=== PATIENT | female | born 1980 | race African-American/Black ===

== ENCOUNTER 2016-04-15 09:35 | Inpatient (IN) | payer MEDICAID ==
[~2016-04-15] VITALS: Ht 172.7 cm; Wt 65.0 kg
[~2016-04-15 09:35] MED LIST: AMOX500T PO; IBUP800T23 PO; MAGICADU2 SWISH-SPIT
[2016-04-15 09:37] VITALS: BP 120/70; PULSE 107; RESP 19; TEMP 99; O2SAT 100
[2016-04-15 10:45] LABS: BACTERIA, URINE RARE /hpf; BLOOD, URINE SMALL (NEG); COMMENT (UR) CULT NOT INDICATED; CULTURE IF INDICATED CULT NOT INDICATED; GLUCOSE,URINE TRACE mg/dL (NEG); KETONE, URINE 10 mg/dL (NEG); MUCUS URINE FEW /lpf (OCC); NITRITE,URINE NEG (NEG); SQUAMOUS EPITHELIAL CELL URINE 1 /hpf (0-5); URINE COLOR YELLOW (YELLW/STRAW)
[2016-04-15] MEDS ORDERED: SODIUM CHLOR 0.9% 1000 ML INJ 1,000 ML IV SCH (11:08)
[2016-04-15] MEDS ORDERED: SODIUM CHLORIDE 0.9% FLUSH 5 ML FLUSH IVF PRN (11:15)
--- NOTE | 2016-04-15 11:15 | PD ---
HPI Chief Complaint: Abdominal Pain Time Seen by Provider: 11:10 Travel History International Travel<30 days: No Contact w/Intl Traveler<30days: No Traveled to known affect area: No History of Present Illness HPI 36-year-old female presents to the emergency department for evaluation of lower abdominal pain for 3 days. Patient states that the pain has been worsening over the past 3 days. States that it is radiating to her back. States that the pain is aggravated with movement. Denies any alleviating factors. States that she had 2 episodes of nonbloody nonbilious emesis last night. States that she did have a bowel movement this morning but states that it was hard and she was slightly constipated. States that she did notice some white vaginal discharge this morning that is abnormal for her. She is sexually active. Denies any fever, chills, diarrhea, chest pain, shortness of breath, cough or cold symptoms, burning with urination, painful urination. Denies , last menstrual period was 2 weeks ago. Denies any prior abdominal surgeries. No other complaints. PFSH Past Medical History Anemia: Yes Diminished Hearing: No Migraines: Yes ?: Unknown : 2 Para: 2 Social History Alcohol Use: Yes (on occasion) Tobacco Use: Yes (one cigars daily) Substance Use: No Allergies-Medications (Allergen,Severity, Reaction): Coded Allergies: No Known Allergies (Unverified , 04/15/16) Reported Meds & Prescriptions Reported Meds & Active Scripts Active Ibuprofen 800 Mg Tab 800 Mg PO Q6HR PRN Magic Mouthwash Adult Liq (Multi-Ingredient Mouthwash/Gargle) 120 Ml Susp 5 Ml SWISH-SPIT Q3HR PRN Each 5 mL contains: Nystatin 200,000 units, Diphenhydramine 4.25 mg, Viscous Lidocaine 10 mg, Asher syrup 0.8 mL Amoxicillin 500 Mg Tab 500 Mg PO BID 10 Days Review of Systems Except as stated in HPI: all other systems reviewed are Neg Physical Exam Narrative GENERAL: Well-nourished and well-developed pleasant female patient in no acute distress. SKIN: Warm and dry. HEAD: Normocephalic and atraumatic. EYES: No injection, drainage, or hyphema noted. PERRLA. EOMI. ENT: No nasal drainage noted. Oropharynx is clear. NECK: Supple and the trachea is midline. CARDIOVASCULAR: Regular rate and rhythm. RESPIRATORY: Breath sounds are equal bilaterally with no accessory muscle use, wheezing, rhonchi, or crackles. GASTROINTESTINAL: Generalized tenderness to palpation worse in the lower abdomen with guarding. She does have tenderness of right lower quadrant but has equal tenderness of left lower quadrant. Abdomen is soft and nondistended. MUSCULOSKELETAL: No obvious deformities, swelling, cyanosis, or ecchymosis is present throughout the upper and lower extremities. Patient has full range of motion without any signs of neurovascular compromise. BACK: Positive CVA tenderness on the right. NEUROLOGICAL: Awake, alert, and oriented. Normal speech and gait. Cranial nerves are grossly intact. Data Data Last Documented VS Vital Signs Date Time Temp Pulse Resp B/P Pulse Ox O2 Delivery O2 Flow Rate FiO2 04/15/16 09:37 99.0 107 19 120/70 100 Room Air Orders Urinalysis - C+S If Indicated (04/15/16 09:54) Ed Urine Pregnancytest Poc (04/15/16 09:54) Complete Blood Count With Diff (04/15/16 11:08) Comprehensive Metabolic Panel (04/15/16 11:08) Lipase (04/15/16 11:08) Ct Abd/Pel W Iv Contrast(Rout) (04/15/16 11:08) Iv Access Insert/Monitor (04/15/16 11:08) Ecg Monitoring (04/15/16 11:08) Oximetry (04/15/16 11:08) NPO (04/15/16 11:08) Sodium Chlor 0.9% 1000 Ml Inj (Ns 1000 M (04/15/16 11:08) Sodium Chloride 0.9% Flush (Ns Flush) (04/15/16 11:15) Labs Laboratory Tests Test 04/15/16 10:01 Urine Color YELLOW Urine Turbidity CLEAR Urine pH 6.0 Urine Specific [place] 1.021 Urine Protein 30 mg/dL Urine Glucose (UA) TRACE mg/dL Urine Ketones 10 mg/dL Urine Occult Blood SMALL Urine Nitrite NEG Urine Bilirubin NEG Urine Urobilinogen 2.0 MG/DL Urine Leukocyte Esterase NEG Urine RBC 5 /hpf Urine WBC 1 /hpf Urine Squamous Epithelial 1 /hpf Cells Urine Bacteria RARE /hpf Urine Mucus FEW /lpf Microscopic Urinalysis Comment CULT NOT INDICATED MDM Medical Decision Making Medical Screen Exam Complete: Yes Emergency Medical Condition: Yes Differential Diagnosis Appendicitis versus pyelonephritis versus diverticulitis versus colitis versus PID Narrative Course 36-year-old female presents to the emergency department for evaluation of abdominal pain for 3 days as 2 episodes of vomiting last night. Patient is afebrile. She is slightly tachycardic with a heart rate of 107 beats per minute. Vital signs are stable. She does have abdominal tenderness to palpation with guarding. IV access is obtained, labs are drawn and sent. CT of the abdomen and pelvis with IV contrast has been ordered and is pending. Patient has initially been seen in triage and will be transferred to medical bed when one becomes available. Emmie Orellana Apr 15, 2016 11:15
--- NOTE | 2016-04-15 11:55 | PD ---
Physical Exam Date Seen by Provider: Apr 15, 2016 Time Seen by Provider: 11:53 Narrative This patient was initially evaluated by Emmie Orellana PA-C. CBC, CMP, lipase, CT of abdomen and pelvis pending when I assumed care of the patient. Bedside urine test negative. 36 year old female presents to the ED for evaluation of day history of gradual onset, now constant 10/10 lower abdominal pain, worsened by certain movements and bearing down. Patient endorses two episodes of nonbloody, nonbilious vomiting last night. Denies nausea on presentation. Last bowel movement this morning, well formed, nonbloody. She denies dysuria, hematuria. She endorses white vaginal discharge, first noticed today. She endorses unprotected sex with male partners. LMP approximately 2 weeks ago. She denies previous abdominal surgery, chronic health problems, takes no daily medications, NKDA. GENERAL: Well-nourished, well-developed nontoxic-appearing black female in no acute distress. SKIN: Warm and dry. Multiple tattoos. HEAD: Normocephalic. EYES: No scleral icterus. No injection or drainage. NECK: Supple, trachea midline. No JVD or lymphadenopathy. CARDIOVASCULAR: Regular rate and rhythm without murmurs, gallops, or rubs. RESPIRATORY: Breath sounds clear and equal bilaterally. No accessory muscle use. GASTROINTESTINAL: Hyperactive bowel sounds. Abdomen soft, mildly distended, diffusely tender, some voluntary guarding. No palpable masses. GENITOURINARY: Normal external genitalia without lesions or erythema. Vaginal vault without blood. Thick white drainage at the introitus. Cervical os was closed with copious, thin grayish green discharge. ++cervical motion tenderness. Uterus tender and nonenlarged. Bilateral adnexa tender without masses. MUSCULOSKELETAL: No cyanosis, or edema. BACK: Nontender without obvious deformity. Bilateral CVA tenderness, right >> left. Data Data Last Documented VS Vital Signs Date Time Temp Pulse Resp B/P Pulse Ox O2 Delivery O2 Flow Rate FiO2 04/15/16 12:00 99 Room Air 04/15/16 11:56 20 04/15/16 09:37 99.0 107 120/70 Orders Urinalysis - C+S If Indicated (04/15/16 09:54) Ed Urine Pregnancytest Poc (04/15/16 09:54) Complete Blood Count With Diff (04/15/16 11:08) Comprehensive Metabolic Panel (04/15/16 11:08) Lipase (04/15/16 11:08) Ct Abd/Pel W Iv Contrast(Rout) (04/15/16 11:08) Iv Access Insert/Monitor (04/15/16 11:08) Ecg Monitoring (04/15/16 11:08) Oximetry (04/15/16 11:08) NPO (04/15/16 11:08) Sodium Chlor 0.9% 1000 Ml Inj (Ns 1000 M (04/15/16 11:08) Sodium Chloride 0.9% Flush (Ns Flush) (04/15/16 11:15) Gc And Chlamydia Pcr (04/15/16 12:12) Wet Prep Profile (04/15/16 12:12) Morphine Inj (Morphine Inj) (04/15/16 12:30) Ondansetron Inj (Zofran Inj) (04/15/16 12:30) Iohexol 350 Inj (Omnipaque 350 Inj) (04/15/16 12:22) Clindamycin Inj (Cleocin Inj) (04/15/16 13:00) Gentamicin Inj (Gentamicin Inj) (04/15/16 13:00) Consult General Surgery (04/15/16 ) Admit Order (Ed Use Only) (04/15/16 13:36) Sodium Chlor 0.9% 1000 Ml Inj (Ns 1000 M (04/15/16 13:45) Labs Laboratory Tests Test 04/15/16 04/15/16 04/15/16 10:01 11:47 12:50 Urine Color YELLOW Urine Turbidity CLEAR Urine pH 6.0 Urine Specific [place] 1.021 Urine Protein 30 mg/dL Urine Glucose (UA) TRACE mg/dL Urine Ketones 10 mg/dL Urine Occult Blood SMALL Urine Nitrite NEG Urine Bilirubin NEG Urine Urobilinogen 2.0 MG/DL Urine Leukocyte Esterase NEG Urine RBC 5 /hpf Urine WBC 1 /hpf Urine Squamous Epithelial 1 /hpf Cells Urine Bacteria RARE /hpf Urine Mucus FEW /lpf Microscopic Urinalysis Comment CULT NOT INDICATED White Blood Count 11.9 TH/MM3 Red Blood Count 4.51 MIL/MM3 Hemoglobin 12.9 GM/DL Hematocrit 38.7 % Mean Corpuscular Volume 85.8 FL Mean Corpuscular Hemoglobin 28.7 PG Mean Corpuscular Hemoglobin 33.4 % Concent Red Cell Distribution Width 13.3 % Platelet Count 212 TH/MM3 Mean Platelet Volume 7.9 FL Neutrophils (%) (Auto) 72.7 % Lymphocytes (%) (Auto) 8.1 % Monocytes (%) (Auto) 18.9 % Eosinophils (%) (Auto) 0.1 % Basophils (%) (Auto) 0.2 % Neutrophils # (Auto) 8.7 TH/MM3 Lymphocytes # (Auto) 1.0 TH/MM3 Monocytes # (Auto) 2.3 TH/MM3 Eosinophils # (Auto) 0.0 TH/MM3 Basophils # (Auto) 0.0 TH/MM3 CBC Comment AUTO DIFF Differential Comment AUTO DIFF CONFIRMED Toxic Vacuolation PRESENT Platelet Estimate NORMAL Platelet Morphology Comment NORMAL Sodium Level 136 MEQ/L Potassium Level 3.8 MEQ/L Chloride Level 101 MEQ/L Carbon Dioxide Level 28.7 MEQ/L Anion Gap 6 MEQ/L Blood Urea Nitrogen 8 MG/DL Creatinine 0.65 MG/DL Estimat Glomerular Filtration 125 ML/MIN Rate Random Glucose 97 MG/DL Calcium Level 9.1 MG/DL Total Bilirubin 0.7 MG/DL Aspartate Amino Transf 14 U/L (AST/SGOT) Alanine Aminotransferase 14 U/L (ALT/SGPT) Alkaline Phosphatase 55 U/L Total Protein 8.5 GM/DL Albumin 3.7 GM/DL Lipase 48 U/L Clue Cells (Wet Prep) PRESENT Vaginal Trichomonas (Wet Prep) NONE SEEN Vaginal Yeast (Wet Prep) NONE SEEN MDM Supervised Visit with WADE: No Differential Diagnosis Appendicitis versus pyelonephritis versus PID versus STI versus cholecystitis versus other Narrative Course Patient was initially evaluated in the [facility]. Please see previous provider note for those details. 36-year-old female presents to the ED for evaluation of 3 day history of gradual onset, now constant, 10/10 lower abdominal pain, worsened by certain movements and bearing down. Reports 2 episodes of nonbloody nonbilious vomiting last night. No nausea on presentation. Patient reports well formed, nonbloody bowel movement this morning. Denies dysuria, hematuria. Endorses white vaginal discharge today, unprotected sex with male partners. LMP 2 weeks ago. No previous abdominal surgery. Vitals reviewed. Tachycardic, rate 107 on presentation. Temp 99.0. Physical exam reveals a nontoxic-appearing black female in no acute distress. There are hyperactive bowel sounds, the abdomen is mildly distended, diffusely tender. Positive CVA tenderness bilaterally, right >> left. Pelvic shows thick white discharge at the introitus, copious thin, grayish green discharge from the cervical os. Positive cervical motion tenderness. IV was established. Patient was placed on continuous monitoring. She was administered a liter of normal saline, 4mg morphine, 4mg Zofran IV CBC: WBC 11.9. Hemoglobin 12.9. CMP: Unremarkable Lipase: 48 UA: No culture indicated UPT: Negative Wet prep: Positive for clue cells. GC and chlamydia: Pending CT of the abdomen and pelvis: Fluid-filled, mildly dilated loops of small bowel suggestive partial small bowel obstruction or small bowel ileus. No certain terms vision point identified. Bilateral renal cysts per radiology read. I discussed the results of the workup and plan of care with Dr. Schulz and the patient who are both agreeable. Patient was administered 900 mg clindamycin IV , loading dose of gentamicin 130 milligrams IV for PID and BV. I'll defer empiric treatment for GC/chlamydia at this time as I plan to admit the patient for observation due to partial SBO. Consult placed with Dr. Jacobson, general surgery. I spoke Dr. Ibrahim, medical microbiologist. He agrees to accept the patient to their service under Dr. Campuzano. Please see medicine and surgery notes for disposition. Diagnosis Primary Impression: Partial small bowel obstruction Additional Impressions: Pelvic inflammatory disease (PID) Bacterial vaginosis Stephenie Maya Apr 15, 2016 11:55
[2016-04-15 12:00] VITALS: BP 127/65; PULSE 90; RESP 18; TEMP 98.4; O2SAT 98; O2SAT 99
[2016-04-15 12:08] LABS: AUTOMATED NEUTROPHIL # 8.7 TH/MM3 (1.8-7.7); BASOPHIL % 0.2 % (0.0-2.0); EOSINOPHIL % 0.1 % (0.0-4.0); HEMATOCRIT 38.7 % (35.0-46.0); HEMO FLAGS AUTO DIFF; LYMPH % 8.1 % (9.0-44.0); MEAN CELL VOLUME 85.8 FL (80.0-100.0); MEAN CORPUSCULAR HEMOGLOBIN 28.7 PG (27.0-34.0); MEAN CORPUSCULAR HGB CONC 33.4 % (32.0-36.0); MONO % 18.9 % (0.0-8.0); NEUT % 72.7 % (16.0-70.0); PLATELET COUNT 212 TH/MM3 (150-450); RED BLOOD COUNT 4.51 MIL/MM3 (4.00-5.30); RED CELL DISTRIBUTION WIDTH 13.3 % (11.6-17.2); WHITE BLOOD COUNT 11.9 TH/MM3 (4.0-11.0)
[2016-04-15] MEDS ORDERED: IOHEXOL 350 MG/ML 10 ML VIAL (for RAD DIAG) IV ONE (12:22)
[2016-04-15 12:24] LABS: ALKALINE PHOSPHATASE 55 U/L (45-117); TOTAL BILIRUBIN ADULT 0.7 MG/DL (0.2-1.0)
[2016-04-15 12:25] LABS: ALT (GPT) 14 U/L (10-53); ANION GAP 6 MEQ/L (5-15); AST (GOT) 14 U/L (15-37); BICARBONATE 28.7 MEQ/L (21.0-32.0); BLOOD UREA NITROGEN 8 MG/DL (7-18); CHLORIDE 101 MEQ/L (98-107); GLOMERULAR FILTRATION RATE 125 ML/MIN (>89); SODIUM (NA) 136 MEQ/L (136-145)
[2016-04-15 12:28] LABS: POTASSIUM 3.8 MEQ/L (3.5-5.1)
[2016-04-15] MEDS ORDERED: ONDANSETRON HCL 4 MG/2 ML VIAL IV PUSH ONE (12:30)
[2016-04-15] MEDS ORDERED: MORPHINE SULFATE 4 MG/ML INJ IV PUSH ONE (12:30)
--- NOTE | 2016-04-15 12:38 | RADRPT ---
EXAM DATE/TIME: 04/15/2016 12:14 [facility] COMPARISON: CT ABDOMEN & PELVIS W/O CONTRAST, June 11, 2015, 16:44. INDICATIONS : Abdominal pain for three days. IV CONTRAST: 90 cc Omnipaque 350 (iohexol) IV ORAL CONTRAST: No oral contrast ingested. RADIATION DOSE: 5.57 CTDIvol (mGy) MEDICAL HISTORY : None SURGICAL HISTORY : None. ENCOUNTER: Initial ACUITY: 3 days PAIN SCALE: 5/10 LOCATION: Bilateral abdomen TECHNIQUE: Volumetric scanning of the abdomen and pelvis was performed. Using automated exposure control and ad justment of the mA and/or kV according to patient size, radiation dose was kept as low as reasonably achievable to obtain optimal diagnostic quality images. FINDINGS: LOWER LUNGS: The visualized lower lungs are clear. LIVER: Homogeneous density without lesion. There is no dilation of the biliary tree. No calcified gallston es. SPLEEN: Normal size without lesion. PANCREAS: Within normal limits. KIDNEYS: Normal in size and shape. There is no solid mass, stone or hydronephrosis. Stable bilateral renal cy sts are noted. ADRENAL GLANDS: Within normal limits. VASCULAR: There is no aortic aneurysm. BOWEL/MESENTERY: Fluid-filled mildly dilated loops of small bowel are noted suggesting partial small bowel obstruction or small bowel ileus. Clinical correlation is recommended. A transition point is not confirmed with certainty. ABDOMINAL WALL: Within normal limits. RETROPERITONEUM: There is no lymphadenopathy. BLADDER: No wall thickening or mass. REPRODUCTIVE: Within normal limits. Small amount of free fluid is noted within the cul-de-sac. INGUINAL: There is no lymphadenopathy or hernia. MUSCULOSKELETAL: Within normal limits for patient age. CONCLUSION: 1. Fluid-filled mildly dilated loops of small bowel are noted suggesting partial small bowel obstruct ion or small bowel ileus. Clinical correlation is recommended. A transition point is not confirmed wi th certainty. 2. Bilateral renal cysts. Wood Samson MD on April 15, 2016 at 12:31 Board Certified Radiologist. This report was verified electronically.
[2016-04-15] MEDS ORDERED: CLINDAMYCIN INJ 900 MG in SODIUM CHLORIDE 0.9% INJ 100 ML IV ONE (13:00)
[2016-04-15] MEDS ORDERED: GENTAMICIN INJ 130 MG in SODIUM CHLORIDE 0.9% INJ 100 ML IV ONE (13:00)
[2016-04-15 13:16] LABS: SCAN/DIFF AUTO DIFF CONFIRMED
[2016-04-15 13:17] LABS: PLATELET ESTIMATE SMEAR NORMAL (NORMAL); PLATELET MORPHOLOGY NORMAL (NORMAL); TOXIC VACUOLATION PRESENT (NONE SEEN)
[2016-04-15] MEDS ORDERED: SODIUM CHLOR 0.9% 1000 ML INJ 1,000 ML IV ONE (13:45)
--- NOTE | 2016-04-15 13:48 | HHI.HP ---
[facility] Service Family Medicine Primary Care Physician No Primary Care Physician Admission Diagnosis partial small bowel obstruction, PID Diagnoses: Chief Complaint: abdominal pain International Travel<30 Days: No Contact w/Intl Traveler<30days: No Known Affected Area: No History of Present Illness 36 y/o -[place] female with no past medical history. She's been having abdominal pain for the last 3-4 days. Has progressively getting worse. Feels like sharp, stabbing pain. Is tender when she presses on her abdomen. Pain is bilateral lower pain. Constant pain, stabbing intermittently. Had trouble sleeping last night. 10/10 pain. Hasn't tried anything at home. Had fever last night. Pain with coughing or walking. No URI symptoms. Last bowel movement this morning, was normal. Last BM was 2 days ago, hard, difficult to pass. No blood in stool. Vomited twice last night. No history of this before. Denies any past medical history. Last intercourse was on Thursday. Has had some clear, milky discharge the last few days. No bleeding. Last period was 2 weeks ago. Has regular periods every month. (Joon Wong MD R1) Review of Systems Constitutional: COMPLAINS OF: Fever, Night Sweats, DENIES: Chills, Dizziness Eyes: DENIES: Eye pain, Vision loss Ears, nose, mouth, throat: DENIES: Tinnitus, Throat pain, Running Nose Respiratory: DENIES: Cough, Wheezing, Sputum production, Shortness of breath Cardiovascular: DENIES: Chest pain, Palpitations, Syncope, Lower Extremity Edema Gastrointestinal: COMPLAINS OF: Abdominal pain, Constipation, Nausea, Vomiting , DENIES: Black stools, Bloody stools, Diarrhea Genitourinary: COMPLAINS OF: Abnormal vaginal bleeding, Dyspareunia, Vaginal discharge, DENIES: Urinary frequency, Hematuria, Dysuria Musculoskeletal: DENIES: Joint pain, Muscle aches Integumentary: DENIES: Abnormal pigmentation, Rash Hematologic/lymphatic: DENIES: Bruising, Lymphadenopathy Immunologic/allergic: DENIES: Eczema, Urticaria Neurologic: DENIES: Abnormal gait, Headache Psychiatric: DENIES: Anxiety, Confusion (Joon Wong MD R1) Past Family Social History Past Medical History None , SVDx2 Past Surgical History None Reported Medications Reported Meds & Active Scripts Active (Joon Wong MD R1) Allergies: Coded Allergies: No Known Allergies (Unverified , 04/15/16) Active Ordered Medications Active Medications Clindamycin Phosphate 900 mg/ Sodium Chloride 106 ml @ 212 mls/hr ONCE ONCE IV ; Start 04/15/16 at 13:00; Stop 04/15/16 at 13:29; Status DC Gentamicin Sulfate 130 mg/ Sodium Chloride 103.25 ml @ 100 mls/ hr ONCE ONCE IV; Start 04/15/16 at 13:00; Stop 04/15/16 at 14:01 Iohexol 90 ml 90 ml STK-MED ONCE IV Last administered on 04/15/16 12:22; Admin Dose 90 ML; Start 04/15/16 at 12:22; Stop 04/15/16 at 12:23; Status DC IV Flush (NS Flush) 2 ml UNSCH PRN IVF; Start 04/15/16 at 11:15 Morphine Sulfate (Morphine Inj) 4 mg ONCE ONCE IV PUSH Last administered on 04/15 12:36; Admin Dose 4 MG; Start 04/15/16 at 12:30; Stop 04/15/16 at 12:31; Status DC Ondansetron HCl (Zofran Inj) 4 mg ONCE ONCE IV PUSH Last administered on 12:36; Admin Dose 4 MG; Start 04/15/16 at 12:30; Stop 04/15/16 at 12:31; Status DC Sodium Chloride (NS 1000 ml Inj) 1,000 ml @ 999 mls/hr BOLUS ONCE IV; Start at 13:45; Stop 04/15/16 at 14:45 Sodium Chloride (NS 1000 ml Inj) 1,000 ml @ 1,000 mls/hr Q1H IV Last administered on 04/15/16 12:11; Admin Dose 1,000 MLS/HR; Start 04/15/16 at 11:08 ; Stop 04/15/16 at 12:07; Status DC Family History Grandmother & mom with breast cancer Social History Self-employed Smokes 6 cigs/day, for 5 years Drinks 3-4 glasses of liquor every other day Denies illicit drug use (Joon Wong MD R1) Physical Exam Vital Signs Vital Signs Date Time Temp Pulse Resp B/P Pulse Ox O2 Delivery O2 Flow Rate FiO2 04/15/16 12:00 99 Room Air 2/7/17 11:56 20 04/15/16 09:37 99.0 107 19 120/70 100 Room Air Physical Exam GENERAL: This is a well-nourished, well-developed patient, in no apparent distress, laying in bed SKIN: No rashes, ecchymoses or lesions. Cool and dry. HEAD: Atraumatic. Normocephalic. No temporal or scalp tenderness. EYES: Pupils equal round and reactive. Extraocular motions intact. No scleral icterus. No injection or drainage. ENT: Nose without bleeding, purulent drainage or septal hematoma. Throat without erythema, tonsillar hypertrophy or exudate. Uvula midline. Airway patent. NECK: Trachea midline. No JVD or lymphadenopathy. Supple, nontender, no meningeal signs. CARDIOVASCULAR: Regular rate and rhythm without murmurs, gallops, or rubs. RESPIRATORY: Clear to auscultation. Breath sounds equal bilaterally. No wheezes , rales, or rhonchi. GASTROINTESTINAL: Abdomen soft. Diffusely tender to palpation in lower abdominal area. No hepato-splenomegaly, or palpable masses. No guarding. Bowel sounds present. MUSCULOSKELETAL: Extremities without clubbing, cyanosis, or edema. No joint tenderness, effusion, or edema noted. No calf tenderness. Bilateral CVAT NEUROLOGICAL: Awake and alert. Cranial nerves II through XII intact. Motor and sensory grossly within normal limits. Five out of 5 muscle strength in all muscle groups. Normal speech. Laboratory Laboratory Tests Test 04/15/16 04/15/16 04/15/16 10:01 11:47 12:50 Urine Color YELLOW Urine Turbidity CLEAR Urine pH 6.0 Urine Specific [place] 1.021 Urine Protein 30 Urine Glucose (UA) TRACE Urine Ketones 10 Urine Occult Blood SMALL Urine Nitrite NEG Urine Bilirubin NEG Urine Urobilinogen 2.0 Urine Leukocyte Esterase NEG Urine RBC 5 Urine WBC 1 Urine Squamous Epithelial 1 Cells Urine Bacteria RARE Urine Mucus FEW Microscopic Urinalysis Comment CULT NOT INDICATED White Blood Count 11.9 Red Blood Count 4.51 Hemoglobin 12.9 Hematocrit 38.7 Mean Corpuscular Volume 85.8 Mean Corpuscular Hemoglobin 28.7 Mean Corpuscular Hemoglobin 33.4 Concent Red Cell Distribution Width 13.3 Platelet Count 212 Mean Platelet Volume 7.9 Neutrophils (%) (Auto) 72.7 Lymphocytes (%) (Auto) 8.1 Monocytes (%) (Auto) 18.9 Eosinophils (%) (Auto) 0.1 Basophils (%) (Auto) 0.2 Neutrophils # (Auto) 8.7 Lymphocytes # (Auto) 1.0 Monocytes # (Auto) 2.3 Eosinophils # (Auto) 0.0 Basophils # (Auto) 0.0 CBC Comment AUTO DIFF Differential Comment AUTO DIFF CONFIRMED Toxic Vacuolation PRESENT Platelet Estimate NORMAL Platelet Morphology Comment NORMAL Sodium Level 136 Potassium Level 3.8 Chloride Level 101 Carbon Dioxide Level 28.7 Anion Gap 6 Blood Urea Nitrogen 8 Creatinine 0.65 Estimat Glomerular Filtration 125 Rate Random Glucose 97 Calcium Level 9.1 Total Bilirubin 0.7 Aspartate Amino Transf 14 (AST/SGOT) Alanine Aminotransferase 14 (ALT/SGPT) Alkaline Phosphatase 55 Total Protein 8.5 Albumin 3.7 Lipase 48 Clue Cells (Wet Prep) PRESENT Vaginal Trichomonas (Wet Prep) NONE SEEN Vaginal Yeast (Wet Prep) NONE SEEN (Joon Wong MD R1) Result Diagram: 04/15/16 1147 04/15/16 1147 Imaging Last Impressions Abdomen/Pelvis CT 04/15/16 1108 Signed Impressions: Service Date/Time: Friday, April 15, 2016 12:14 - CONCLUSION: 1. Fluid-filled mildly dilated loops of small bowel are noted suggesting partial small bowel obstruction or small bowel ileus. Clinical correlation is recommended. A transition point is not confirmed with certainty. 2. Bilateral renal cysts. Wood Samson MD (Joon Wong MD R1) Assessment and Plan Assessment and Plan 36-year-old female presents with abdominal pain. Found to have PID. Will admit for IV antibiotics and pain control. Code Status Full Discussed Condition With Dr. Ibrahim (Joon Wong MD R1) Attending Attestation THIS CASE WAS DISCUSSED WITH THE RESIDENT PHYSICIANS. I HAVE REVIEWED THE RECORD AND AGREE WITH THE ABOVE NOTE AND PLAN OF CARE WAS DISCUSSED. I HAVE AUTHORIZED THE ORDER FOR ADMISSION TO AN IN-PATIENT STATUS. (Kumar Campuzano MD) Problem List: (1) Pelvic inflammatory disease (PID) Status: Acute Plan: Soft, diffusely tender lower abdomen. WBC 11.9. Vital signs stable. Pelvic exam; thick white and green discharge. Positive cervical motion tenderness. Wet prep: Positive for clue cells GC and chlamydia pending Abdomen/CT pelvis; fluid-filled mildly dilated loops of small bowel are noted suggesting partial small bowel obstruction or small bowel ileus. Given clindamycin 900 mg IV and gentamicin loading dose 130mg in ED Plan -Continue Clindamycin 900mg IV q8H -Continue Gentamicin 100mg IV q8H -Pain control with tylenol and ibuprofen -Zofran PRN nausea -Clear liquid diet -GC/CH pending (2) Partial small bowel obstruction Status: Acute Plan: Abdomen/CT pelvis; fluid-filled mildly dilated loops of small bowel are noted suggesting partial small bowel obstruction or small bowel ileus. Patient reports having bowel movement this morning. Does report occasional constipation previous to presentation. Plan -Clear liquid diet, advance diet as tolerated -Zofran PRN nausea -Monitor input/output (3) FEN Status: Acute Plan: Fluids: NS @ 75mls/hr Electrolytes; wnl. continue to monitor Nutrition: CLD, advance as tolerated DVT ppx: SCDs (Joon Wong MD R1) Physician Certification 2 Midnight Certification Type: Admission for Inpatient Services Order for Inpatient Services The services are ordered in accordance with Medicare regulations or non- Medicare payer requirements, as applicable. In the case of services not specified as inpatient-only, they are appropriately provided as inpatient services in accordance with the 2-midnight benchmark. Estimated LOS (days): 2 days is the estimated time the patient will need to remain in the hospital, assuming treatment plan goals are met and no additional complications. Post-Hospital Plan: Home (Joon Wong MD R1) Joon Wong MD R1 Apr 15, 2016 13:48 Kumar Campuzano MD Apr 17, 2016 08:09
[2016-04-15] MEDS ORDERED: SODIUM CHLORIDE 0.9% FLUSH 5 ML FLUSH FLUSH PRN (14:15)
[2016-04-15] MEDS ORDERED: IBUPROFEN 600 MG TAB PO PRN (14:15)
[2016-04-15] MEDS ORDERED: ONDANSETRON HCL 4 MG/2 ML VIAL IV PRN (14:15)
[2016-04-15] MEDS: SODIUM CHLOR 0.9% 1000 ML INJ 1,000 ML IV SCH ×2 (14:50→21:52)
[2016-04-15 15:00] VITALS: BP 129/71; PULSE 88; RESP 18; TEMP 98.7; O2SAT 98
[2016-04-15 15:58] LABS: CHLAMYDIA PCR NOT DETECTED (NOT DETECT); NEISSERIA PCR NOT DETECTED (NOT DETECT)
[2016-04-15 16:00] VITALS: BP 114/67; PULSE 80; RESP 18; TEMP 98.7; O2SAT 98
[2016-04-15] MEDS: ACETAMINOPHEN 325 MG TAB PO PRN (16:23)
[2016-04-15 17:09] VITALS: BP 102/61; PULSE 78; RESP 20; O2SAT 97
[2016-04-15 21:02] VITALS: BP 105/72; PULSE 82; RESP 16; TEMP 98.7; O2SAT 98
[2016-04-15] MEDS: SODIUM CHLORIDE 0.9% FLUSH 5 ML FLUSH FLUSH SCH (21:54)
[2016-04-15] MEDS: GENTAMICIN INJ 100 MG in SODIUM CHLORIDE 0.9% INJ 100 ML IV SCH (22:27)
[2016-04-16] VITALS: BP 98/57; PULSE 98; RESP 16; TEMP 99.8; O2SAT 97
[2016-04-16] MEDS: CLINDAMYCIN INJ 900 MG in SODIUM CHLORIDE 0.9% INJ 100 ML IV SCH ×2 (00:31→07:28)
[2016-04-16] MEDS: ACETAMINOPHEN 325 MG TAB PO PRN (00:36)
[2016-04-16 04:00] VITALS: BP 95/49; PULSE 85; RESP 16; TEMP 98.7; O2SAT 96
[2016-04-16] MEDS: GENTAMICIN INJ 100 MG in SODIUM CHLORIDE 0.9% INJ 100 ML IV SCH (06:03)
[2016-04-16 08:00] VITALS: BP 99/62; PULSE 82; RESP 18; TEMP 99.4; O2SAT 100
[2016-04-16] MEDS: SODIUM CHLORIDE 0.9% FLUSH 5 ML FLUSH FLUSH SCH (08:00)
[2016-04-16 08:37] LABS: AUTOMATED NEUTROPHIL # 5.8 TH/MM3 (1.8-7.7); BASOPHIL % 0.2 % (0.0-2.0); EOSINOPHIL % 0.3 % (0.0-4.0); HEMATOCRIT 31.1 % (35.0-46.0); HEMO FLAGS DIFF FINAL; LYMPH % 10.9 % (9.0-44.0); LYMPHOCYTE # 0.9 TH/MM3 (1.0-4.8); MEAN CORPUSCULAR HEMOGLOBIN 29.4 PG (27.0-34.0); MEAN CORPUSCULAR HGB CONC 34.2 % (32.0-36.0); NEUT % 67.6 % (16.0-70.0); PLATELET COUNT 175 TH/MM3 (150-450); RED BLOOD COUNT 3.62 MIL/MM3 (4.00-5.30); RED CELL DISTRIBUTION WIDTH 13.1 % (11.6-17.2); WHITE BLOOD COUNT 8.6 TH/MM3 (4.0-11.0)
--- NOTE | 2016-04-16 08:53 | HHI.FPPN ---
Subjective Remarks FM Attending Note: Patient seen and examined. S: Chart and all resident physician notes reviewed. In summary this is a 36 year old female who was admitted with an admission diagnosis of Partial Small Bowel Obstruction/Pid. This patient described a 2-3 day history of increasing abdominal pain, nausea, vomiting and fever. Pain increased with walking. CT of abdomen done in the ER suggested a partial small bowel obx/ileus. Pelvic exam done by ER physician showed cervical discharge with moderately severe cervical motion pain. GC PCR was negative. Patient was admitted and started on IV antibiotics. This AM noting that the pain is much better. Now hungry. No further nausea. No fever or chills. Objective Vitals Vital Signs Date Time Temp Pulse Resp B/P Pulse Ox O2 Delivery O2 Flow Rate FiO2 04/16/16 04:00 98.7 85 16 95/49 96 04/16/16 00:00 99.8 98 16 98/57 97 04/15/16 21:02 98.7 82 16 105/72 98 04/15/16 17:09 78 20 102/61 97 Room Air 04/15/16 16:00 98.7 80 18 114/67 98 Room Air 04/15/16 15:00 98.7 88 18 129/71 98 Room Air 04/15/16 12:00 98.4 90 18 127/65 98 Room Air 04/15/16 12:00 99 Room Air 04/15/16 11:56 20 04/15/16 09:37 99.0 107 19 120/70 100 Room Air I/O 04/15/16 04/15/16 04/15/16 04/16/16 04/16/16 04/16/16 07:00 15:00 23:00 07:00 15:00 23:00 Intake Total 225 ml 400 ml 550 ml Balance 225 ml 400 ml 550 ml Intake Oral 150 ml 550 ml IV Total 75 ml 400 ml # Voids 1 2 # Bowel Movements 0 0 Result Diagram: 04/15/16 1147 04/15/16 1147 Other Results Item Value Date Time Total Bilirubin 0.7 MG/DL 04/15/16 1147 Aspartate Amino Transf (AST/SGOT) 14 U/L L 04/15/16 1147 Alanine Aminotransferase (ALT/SGPT) 14 U/L 04/15/16 1147 Alkaline Phosphatase 55 U/L 04/15/16 1147 Lipase 48 U/L L 04/15/16 1147 Urine Specific [place] 1.021 04/15/16 1001 Urine Glucose (UA) TRACE mg/dL 04/15/16 1001 Urine Protein 30 mg/dL H 04/15/16 1001 Urine Occult Blood SMALL H 04/15/16 1001 Urine Nitrite NEG 04/15/16 1001 Urine Leukocyte Esterase NEG 04/15/16 1001 Urine RBC 5 /hpf H 04/15/16 1001 Urine WBC 1 /hpf 04/15/16 1001 Clue Cells (Wet Prep) PRESENT H 04/15/16 1250 Vaginal Trichomonas (Wet Prep) NONE SEEN 04/15/16 1250 Vaginal Yeast (Wet Prep) NONE SEEN 04/15/16 1250 Chlamydia trachomatis DNA (PCR) NOT DETECTED 04/15/16 1250 Neisseria gonorrhoeae DNA (PCR) NOT DETECTED 04/15/16 1250 Imaging Last 48 hours Impressions Abdomen/Pelvis CT 04/15/16 1108 Signed Impressions: Service Date/Time: Friday, April 15, 2016 12:14 - CONCLUSION: 1. Fluid-filled mildly dilated loops of small bowel are noted suggesting partial small bowel obstruction or small bowel ileus. Clinical correlation is recommended. A transition point is not confirmed with certainty. 2. Bilateral renal cysts. Wood Samson MD Objective Remarks O. CONSTITUTIONAL/GEN: normally nourished, in NAD. EYES: conjunctiva normal LUNGS: clear A-P, respiratory effort is normal. CARDIOVASCULAR: RR without murmur or gallop. No significant edema. GI/ABD: soft without masses, without organomegaly. Mild direct tenderness in right and left lower quadrant area. No rebound tenderness. : no CVA tenderness NEURO: No focal deficits. MUSC: back is normal in appearance. Extremities are normal in appearance. PSYCH/MENTAL STATUS: Alert and oriented x 3. A/P Assessment and Plan 36-year-old female presents with abdominal pain. Found to have PID. Will admit for IV antibiotics and pain control. Problem List: (1) Pelvic inflammatory disease (PID) Status: Acute Plan: Soft, diffusely tender lower abdomen. WBC 11.9. Vital signs stable. Pelvic exam; thick white and green discharge. Positive cervical motion tenderness. Wet prep: Positive for clue cells GC and chlamydia pending Abdomen/CT pelvis; fluid-filled mildly dilated loops of small bowel are noted suggesting partial small bowel obstruction or small bowel ileus. Given clindamycin 900 mg IV and gentamicin loading dose 130mg in ED Plan -Continue Clindamycin 900mg IV q8H -Continue Gentamicin 100mg IV q8H -Pain control with tylenol and ibuprofen -Zofran PRN nausea -Clear liquid diet -GC/CH pending 04/16/16 GC and chlamydia PCR negative. Clinically much improved with hydration and IV antibiotics. Will advance diet. If tolerated with start PO antiotic regimen for probable PID with continuation of treatment as an ambulatory patient. (2) Partial small bowel obstruction Status: Acute Plan: Abdomen/CT pelvis; fluid-filled mildly dilated loops of small bowel are noted suggesting partial small bowel obstruction or small bowel ileus. Patient reports having bowel movement this morning. Does report occasional constipation previous to presentation. Plan -Clear liquid diet, advance diet as tolerated -Zofran PRN nausea -Monitor input/output (3) FEN Status: Acute Plan: Fluids: NS @ 75mls/hr Electrolytes; wnl. continue to monitor Nutrition: CLD, advance as tolerated DVT ppx: Kumar Felipe MD Apr 16, 2016 08:53
[2016-04-16 09:05] LABS: BICARBONATE 24.5 MEQ/L (21.0-32.0); POTASSIUM 3.4 MEQ/L (3.5-5.1)
[2016-04-16] MEDS ORDERED: INFLUENZA VIRUS VACCINE (QUADRIVALENT) 0.5 ML SYR IM ONE (10:00)
[2016-04-16] MEDS ORDERED: IBUP-232 PO (11:02)
[2016-04-16] MEDS ORDERED: CLIN1CAP5 PO (11:02)
--- NOTE | 2016-04-16 11:04 | HHI.DCPOC ---
Discharge Care Plan Diagnosis: (1) Bacterial vaginosis (2) Pelvic inflammatory disease (PID) (3) Partial small bowel obstruction (4) Ileus Goals to Promote Your Health * To prevent worsening of your condition and complications * To maintain your health at the optimal level Take antibiotics to completion Directions to Meet Your Goals Take your medications as prescribed Follow your dietary instruction Follow activity as directed Keep your appointments as scheduled Take your immunizations and boosters as scheduled If your symptoms worsen call your PCP, if no PCP go to Urgent Care Center or Emergency Room Smoking is Dangerous to Your Health. Avoid second hand smoke Call the 24-hour hour crisis hotline for domestic abuse at [place] Ibrahim MD R2 Apr 16, 2016 11:04
[2016-04-16] MEDS ORDERED: CLINDAMYCIN 150 MG CAP PO SCH (12:00)
== END 2016-04-16 15:17 | disposition home or self-care (01) | DRG 758 ==
LOC: NEPE 09:35 → NEDA 13:38 → HOCB 20:28
PROVIDERS: ADMIT Family Medicine; ATTEND Family Medicine
DX: N73.9 Female pelvic inflammatory disease, unspecified (principal); K56.60 Unspecified intestinal obstruction; N28.1 Cyst of kidney, acquired; K56.7 Ileus, unspecified; F17.290 Nicotine dependence, other tobacco product, uncomplicated; Z80.3 Family history of malignant neoplasm of breast; Z23 Encounter for immunization
CPT/HCPCS: 74177; 80048; 80053; 81001; 83690; 84703; 85025; 87210; 87491; 87591; 90686; 96374; 96375; J1580; J2270; J2405; J7030; Q2038; Q9967